=== PATIENT | male | born 1975 | race Caucasian/White ===

== ENCOUNTER 2022-04-10 12:22 | Inpatient (IN) | payer OTHER ==
[2022-04-10 13:33] VITALS: BMI 25.1
[2022-04-10] MEDS ORDERED: diazePAM 5 MG TABLET PO PRN (13:57)
[2022-04-10] MEDS ORDERED: BENZOCAINE/MENTHOL (CHLORASEPTIC ) LOZENGE MM PRN (13:57)
[2022-04-10] MEDS ORDERED: MAGNESIUM HYDROX 2400MG/30ML ORAL SUSPENSION 30 ML CUP PO PRN (13:57)
[2022-04-10] MEDS ORDERED: LOPERAMIDE HCL 2 MG CAPSULE PO PRN (13:57)
[2022-04-10] MEDS ORDERED: ACETAMINOPHEN 325 MG TABLET (FP) PO PRN ×2 (13:57)
[2022-04-10] MEDS ORDERED: MAGNESIUM CITRATE 300 ML BOTTLE PO PRN (13:57)
[2022-04-10] MEDS ORDERED: METHOCARBAMOL 500 MG TABLET PO PRN (13:57)
[2022-04-10] MEDS ORDERED: NALOXONE HCL (KLOXXADO) 8 MG SPRAY NS PRN (13:57)
[2022-04-10] MEDS ORDERED: DICYCLOMINE HCL 10 MG CAPSULE PO PRN (13:57)
[2022-04-10] MEDS ORDERED: IBUPROFEN 400 MG TABLET (FP) PO PRN (13:57)
[2022-04-10] MEDS ORDERED: ONDANSETRON *ODT* 4 MG TABLET SL PRN (13:57)
[2022-04-10] MEDS ORDERED: MAG HYDROX/AL HYDROX/SIMETH 30 ML UNIT-DOSE CUP PO PRN (13:57)
[2022-04-10] MEDS ORDERED: BISMUTH SUBSALICYLATE 524 MG/30 ML PO PRN (13:57)
[2022-04-10] MEDS ORDERED: IBUPROFEN 600 MG TABLET (FP) PO PRN (13:57)
[2022-04-10] MEDS: hydrOXYzine PAMOATE 25 MG CAPSULE (FP) PO SCH ×3 (15:04→22:38)
[2022-04-10] MEDS: NICOTINE 14 MG/24 HOURS TOPICAL PATCH TD SCH (15:04)
[2022-04-10] MEDS: PRENATAL VITAMINS W/ FOLIC ACID TABLET (FP) PO SCH (15:04)
[2022-04-10] MEDS: diazePAM 5 MG TABLET PO SCH ×2 (18:23→22:28)
[2022-04-10] MEDS: THIAMINE HCL 100 MG TABLET (FP) PO SCH (22:28)
[2022-04-10] MEDS: MELATONIN 5 MG TABLETS PO SCH (22:29)
[2022-04-11] MEDS: diazePAM 5 MG TABLET PO SCH ×4 (05:26→23:56)
[2022-04-11] MEDS: hydrOXYzine PAMOATE 25 MG CAPSULE (FP) PO SCH ×5 (05:26→23:56)
[2022-04-11] MEDS ORDERED: methaDONE HCL 10 MG TABLET PO ONE (09:43)
[2022-04-11] MEDS ORDERED: methaDONE 40 MG, methaDONE 20 MG PO ONE (10:15)
[2022-04-11] MEDS ORDERED: methaDONE HCL 10 MG TABLET ONE (10:17)
[2022-04-11] MEDS ORDERED: methaDONE HCL 40 MG DISPERSABLE TABLET ONE (10:18)
[2022-04-11] MEDS: NICOTINE 14 MG/24 HOURS TOPICAL PATCH TD SCH (10:19)
[2022-04-11] MEDS: PRENATAL VITAMINS W/ FOLIC ACID TABLET (FP) PO SCH (10:19)
[2022-04-11 10:36] LABS: HEMOGLOBIN 12.8 GM/dL (11.7-16.9); MCH 30.9 pg (25.7-33.7); MCHC 33.7 g/dl (32.0-35.9); MEAN CELL VOLUME 91.7 fl (80-96); MEAN PLT VOLUME 8.6 fl (7.5-11.1); PLATELET COUNT 278 10^3/uL (134-434); RBC 4.14 M/mm3 (4.00-5.60); RDW 13.7 % (11.9-15.9); WHITE BLOOD COUNT 5.5 K/mm3 (4.0-10.0)
[2022-04-11 10:56] LABS: ALBUMIN 3.5 g/dl (3.4-5.0); CALCIUM 8.9 mg/dL (8.5-10.1)
[2022-04-11 10:57] LABS: BLOOD UREA NITROGEN 11.1 mg/dL (7-18)
[2022-04-11 10:58] LABS: CREATININE 0.7 mg/dL (0.55-1.3)
[2022-04-11 11:00] LABS: BILIRUBIN,TOTAL 0.3 mg/dL (0.2-1); TOT PROT 6.6 g/dl (6.4-8.2)
[2022-04-11] MEDS: MELATONIN 5 MG TABLETS PO SCH (23:55)
[2022-04-11] MEDS: THIAMINE HCL 100 MG TABLET (FP) PO SCH (23:56)
[2022-04-12] MEDS ORDERED: methaDONE HCL 40 MG DISPERSABLE TABLET ONE ×2 (04:39→10:21)
[2022-04-12] MEDS ORDERED: methaDONE HCL 10 MG TABLET ONE ×2 (04:39→10:21)
[2022-04-12] MEDS: diazePAM 5 MG TABLET PO SCH ×3 (05:28→22:12)
[2022-04-12] MEDS ORDERED: methaDONE HCL 10 MG TABLET (FOR DETOX USE ONLY) PO SCH (06:00)
[2022-04-12] MEDS: hydrOXYzine PAMOATE 25 MG CAPSULE (FP) PO SCH ×5 (06:00→22:14)
[2022-04-12] MEDS ORDERED: methaDONE 40 MG, methaDONE 20 MG PO SCH (06:00)
[2022-04-12] MEDS: NICOTINE 14 MG/24 HOURS TOPICAL PATCH TD SCH (10:19)
[2022-04-12] MEDS: PRENATAL VITAMINS W/ FOLIC ACID TABLET (FP) PO SCH (10:22)
[2022-04-12] MEDS: methaDONE 40 MG, methaDONE 20 MG PO SCH (10:22)
[2022-04-12] MEDS: NICOTINE 10 MG CARTRIDGE (INHALER) IH PRN (10:23)
[2022-04-12] MEDS: MELATONIN 5 MG TABLETS PO SCH (22:13)
[2022-04-12] MEDS: THIAMINE HCL 100 MG TABLET (FP) PO SCH (22:13)
[2022-04-13] MEDS: hydrOXYzine PAMOATE 25 MG CAPSULE (FP) PO SCH ×5 (05:21→22:09)
[2022-04-13] MEDS: diazePAM 5 MG TABLET PO SCH ×2 (05:21→17:35)
[2022-04-13] MEDS ORDERED: methaDONE HCL 10 MG TABLET ONE (09:08)
[2022-04-13] MEDS ORDERED: methaDONE HCL 40 MG DISPERSABLE TABLET ONE (09:08)
[2022-04-13] MEDS: PRENATAL VITAMINS W/ FOLIC ACID TABLET (FP) PO SCH (10:16)
[2022-04-13] MEDS: NICOTINE 14 MG/24 HOURS TOPICAL PATCH TD SCH (10:16)
[2022-04-13] MEDS: methaDONE 40 MG, methaDONE 20 MG PO SCH (10:17)
[2022-04-13] MEDS: NICOTINE 10 MG CARTRIDGE (INHALER) IH PRN ×2 (10:24→20:15)
[2022-04-13] MEDS ORDERED: MIRTAZAPINE 15 MG TABLET (FP) PO SCH (22:00)
[2022-04-13] MEDS ORDERED: busPIRone HCL 5 MG TABLET PO SCH (22:00)
[2022-04-13] MEDS: MELATONIN 5 MG TABLETS PO SCH (22:08)
[2022-04-13] MEDS: GABAPENTIN 100 MG CAPSULE PO SCH (22:09)
[2022-04-13] MEDS: THIAMINE HCL 100 MG TABLET (FP) PO SCH (22:09)
[2022-04-14] MEDS: GABAPENTIN 100 MG CAPSULE PO SCH (05:14)
[2022-04-14] MEDS: hydrOXYzine PAMOATE 25 MG CAPSULE (FP) PO SCH ×2 (05:14→10:09)
[2022-04-14] MEDS ORDERED: diazePAM 5 MG TABLET PO ONE (06:00)
[2022-04-14 06:42] VITALS: TEMP 97.8
[2022-04-14] MEDS ORDERED: methaDONE HCL 10 MG TABLET ONE (09:06)
[2022-04-14] MEDS ORDERED: methaDONE HCL 40 MG DISPERSABLE TABLET ONE (09:07)
[2022-04-14 09:19] VITALS: BP 122/73; PULSE 63
[2022-04-14] MEDS: NICOTINE 14 MG/24 HOURS TOPICAL PATCH TD SCH (10:09)
[2022-04-14] MEDS: PRENATAL VITAMINS W/ FOLIC ACID TABLET (FP) PO SCH (10:09)
[2022-04-14] MEDS: methaDONE 40 MG, methaDONE 20 MG PO SCH (10:09)
== END 2022-04-14 11:55 | disposition home or self-care (01) | DRG 773 ==
LOC: YASAS 12:22 → Y6N 14:07
PROVIDERS: ADMIT Allergy & Immunology; ATTEND Surgery
PROC: HZ2ZZZZ Detoxification Services for Substance Abuse Treatment (ICD-10-PCS; principal; 2022-04-10)
DX: F10.230 Alcohol dependence with withdrawal, uncomplicated (principal); F11.20 Opioid dependence, uncomplicated; F14.20 Cocaine dependence, uncomplicated; F17.210 Nicotine dependence, cigarettes, uncomplicated; F19.24 Other psychoactive substance dependence with psychoactive substance-induced mood disorder; F41.9 Anxiety disorder, unspecified; F41.1 Generalized anxiety disorder; Z86.69 Personal history of other diseases of the nervous system and sense organs; Z56.0 Unemployment, unspecified; Z59.02 Unsheltered homelessness
CPT/HCPCS: 36415; 80053; 85027; 86780; 93005; 93010; C9803-CS; U0003; U0005

== ENCOUNTER 2024-06-17 17:30 | Inpatient (IN) | payer BC ==
[2024-06-17 15:56] VITALS: BMI 27.8
[2024-06-17] MEDS ORDERED: ONDANSETRON *ODT* 4 MG TABLET SL PRN (20:11)
[2024-06-17] MEDS ORDERED: IBUPROFEN 600 MG TABLET (FP) PO PRN (20:11)
[2024-06-17] MEDS ORDERED: IBUPROFEN 400 MG TABLET (FP) PO PRN (20:11)
[2024-06-17] MEDS ORDERED: LOPERAMIDE HCL 2 MG CAPSULE PO PRN (20:11)
[2024-06-17] MEDS ORDERED: POLYETHYLENE GLYCOL (HEALTHYLAX) 3350 17 GM PACKET PO PRN (20:11)
[2024-06-17] MEDS ORDERED: ACETAMINOPHEN 325 MG TABLET (FP) PO PRN (20:11)
[2024-06-17] MEDS ORDERED: diazePAM 5 MG TABLET PO PRN (20:11)
[2024-06-17] MEDS ORDERED: MAG HYDROX/AL HYDROX/SIMETH 30 ML UNIT-DOSE CUP PO PRN (20:11)
[2024-06-17] MEDS ORDERED: NALOXONE HCL 0.4 MG/ML VIAL IM PRN (20:11)
[2024-06-17] MEDS ORDERED: NALOXONE (NARCAN) HCL 4 MG/0.1 ML SPRAY NS PRN (20:11)
[2024-06-17] MEDS ORDERED: MAGNESIUM HYDROX 2400MG/30ML ORAL SUSPENSION 30 ML CUP PO PRN (20:11)
[2024-06-17] MEDS ORDERED: BISMUTH SUBSALICYLATE 524 MG/30 ML PO PRN (20:11)
[2024-06-17] MEDS ORDERED: NICOTINE POLACRILEX 4 MG GUM BUC PRN (20:11)
[2024-06-17] MEDS ORDERED: BENZONATATE 200 MG CAPSULE PO PRN (20:11)
[2024-06-17] MEDS ORDERED: guaiFENesin 600 MG TABLET.ER (FP) PO PRN (20:11)
[2024-06-17] MEDS ORDERED: DICYCLOMINE HCL 10 MG CAPSULE PO PRN (20:11)
[2024-06-17] MEDS ORDERED: BENZOCAINE/MENTHOL (CHLORASEPTIC ) LOZENGE MM PRN (20:11)
[2024-06-17] MEDS ORDERED: MELATONIN 5 MG TABLETS ONE (23:42)
[2024-06-17] MEDS ORDERED: diazePAM 5 MG TABLET ONE (23:42)
[2024-06-17] MEDS: MELATONIN 5 MG TABLETS PO SCH (23:47)
[2024-06-17] MEDS: THIAMINE 100 MG TABLET PO SCH (23:47)
[2024-06-17] MEDS: diazePAM 5 MG TABLET PO SCH (23:47)
[2024-06-18] MEDS ORDERED: methaDONE 40 MG, methaDONE 30 MG PO ONE (08:32)
[2024-06-18] MEDS: methaDONE 40 MG, methaDONE 30 MG PO ONE (10:30)
[2024-06-18] MEDS: PRENATAL VITAMINS W/ FOLIC ACID TABLET (FP) PO SCH (10:30)
[2024-06-18] MEDS: NICOTINE 21 MG/24 HOURS TOPICAL PATCH TD SCH (10:31)
[2024-06-18 14:37] LABS: HEMATOCRIT 40.1 % (35.4-49); HEMOGLOBIN 13.1 GM/dL (11.7-16.9); MCH 29.9 pg (25.7-33.7); MCHC 32.7 g/dl (32.0-35.9); MEAN CELL VOLUME 91.4 fl (80-96); MEAN PLT VOLUME 8.9 fl (7.5-11.1); PLATELET COUNT 255 10^3/uL (134-434); RBC 4.39 M/mm3 (4.00-5.60); RDW 13.6 % (11.9-15.9); WHITE BLOOD COUNT 6.1 K/mm3 (4.0-10.0)
[2024-06-18 14:48] LABS: CHLORIDE 108 mmol/L (98-107); POTASSIUM 4.2 mmol/L (3.5-5.1); SODIUM 142 mmol/L (136-145)
[2024-06-18 14:59] LABS: ALBUMIN 3.4 g/dl (3.4-5.0); ANION GAP 6 mmol/L (4-13); BLOOD UREA NITROGEN 14.1 mg/dL (7-18); CALCIUM 9.1 mg/dL (8.5-10.1); CO2 29 mmol/L (21-32); GLUCOSE,RANDOM 108 mg/dL (74-106)
[2024-06-18 15:01] LABS: SGOT/AST 17 U/L (15-37); SGPT/ALT 23 U/L (13-61)
[2024-06-18 15:02] LABS: CREATININE 0.7 mg/dL (0.55-1.3)
[2024-06-18 15:04] LABS: BILIRUBIN,TOTAL 0.3 mg/dL (0.2-1); TOT PROT 6.9 g/dl (6.4-8.2)
[2024-06-18 15:06] LABS: ALK PHOS 81 U/L (45-117)
[2024-06-19] MEDS ORDERED: methaDONE HCL 10 MG TABLET PO SCH (06:00)
[2024-06-19] MEDS: methaDONE 40 MG, methaDONE 30 MG PO SCH (06:01)
[2024-06-19] MEDS: diazePAM 5 MG TABLET PO SCH (06:01)
[2024-06-19] MEDS: METHOCARBAMOL 500 MG TABLET PO PRN (22:18)
[2024-06-20] MEDS: diazePAM 5 MG TABLET PO SCH (06:20)
[2024-06-20] MEDS: hydrOXYzine PAMOATE 25 MG CAPSULE (FP) PO PRN (23:52)
[2024-06-21] MEDS: diazePAM 5 MG TABLET PO ONE (06:22)
[2024-06-22 06:37] VITALS: RESP 16
[2024-06-22 08:56] VITALS: BP 139/92; PULSE 79; TEMP 97.1
== END 2024-06-22 11:41 | disposition home or self-care (01) | DRG 773 ==
LOC: YASAS 17:30 → Y3N 23:27
PROVIDERS: ADMIT Allergy & Immunology; ATTEND Surgery
PROC: HZ2ZZZZ Detoxification Services for Substance Abuse Treatment (ICD-10-PCS; principal; 2024-06-17)
DX: F10.230 Alcohol dependence with withdrawal, uncomplicated (principal); F11.20 Opioid dependence, uncomplicated; F14.20 Cocaine dependence, uncomplicated; F17.210 Nicotine dependence, cigarettes, uncomplicated; F19.24 Other psychoactive substance dependence with psychoactive substance-induced mood disorder; F41.1 Generalized anxiety disorder; Z56.0 Unemployment, unspecified; Z59.00 Homelessness unspecified
CPT/HCPCS: 36415; 80053; 80305; 80307; 85027; 86780; 86803; 87522; 87811; 93005; 93010